=== PATIENT | female | born 1960 | race Caucasian/White ===

== ENCOUNTER 2020-06-05 08:40 | Emergency (ER) | payer BC, SELFPAY ==
[2020-06-05 08:46] VITALS: BP 128/67; PULSE 81; RESP 16; TEMP 37; O2SAT 99
[2020-06-05 09:23] VITALS: BP 124/64; PULSE 80; RESP 14; O2SAT 99
[2020-06-05 09:24] LABS: Add Urine Microscopic? YES; Appearance Urine Clear (Clear); Bacteria Urine Trace /hpf; Bilirubin Urine Negative (Negative); Blood Urine 1+ (Negative); Color Urine Straw (Yellow); Glucose Urine UA Negative (Negative); Ketones Urine Negative (Negative); Leukocyte Esterase Ur 3+ LEU/UL (Negative); Mucus Urine Rare /lpf; Nitrate Urine Negative (Negative); Protein Urine Negative (Negative); Squamous Epithelial Cell Urine Rare /hpf (Few); Urobilinogen Urine Negative mg/dL (<2.0)
[2020-06-05 09:25] LABS: Specific Grav Ur 1.003 (1.001-1.035)
--- NOTE | 2020-06-05 09:36 | ED.FEMALEGU ---
HPI - Female Genitourinary General Chief complaint: Urogenital-Female Stated complaint: urinary burning/hematuria Time Seen by Provider: 06/05/20 09:12 Source: patient Mode of arrival: ambulatory Limitations: no limitations History of Present Illness HPI Narrative: This is a 51-year-old female that presents the emergency department for dysuria x2 days. Also reports urge and frequency. Reports when symptoms started she noted some blood in the urine. Reports she has had left sided rib pain for the last couple of days as well. No known injury or trauma. Pain is worse with movement and relieved with rest and heating pad. Denies fever, nausea, vomiting, or flank pain. Related Data Home Medications Medication Instructions Recorded Confirmed calcium carbonate-vitamin D3 500 cap PO 06/14/19 mg (1,250 mg)-50 unit capsule multivitamin 1 tablet PO DAILY 06/14/19 spironolactone 5 %-niacinamide 4 % each TOPICAL 06/14/19 topical gel zolpidem 5 mg tablet 5 mg PO ONCE 06/14/19 Allergies Allergy/AdvReac Type Severity Reaction Status Date / Time No Known Allergies Allergy Verified 09/16/19 15:22 Review of Systems Review of Systems: Narrative: CONSTITUTIONAL: Denies fever CARDIOVASCULAR: Reports rib pain RESPIRATORY: Denies cough or dyspnea. GASTROINTESTINAL: Denies abdominal pain, nausea, vomiting GENITOURINARY: Reports dysuria and hematuria. MUSCULOSKELETAL: Reports myalgia. All systems reviewed & are unremarkable except as noted in HPI and below PMFSH Past Medical History Medical History (Updated 06/05/20 @ 11:24 by Rosa Maria Moreira PA-C) Chondromalacia, right knee Chronic headaches Lateral meniscus tear Patella lion Right knee pain Seasonal allergic rhinitis Vision abnormalities Surgical History Surgical History H/O knee surgery Family History Family History Father Hypertension Family history of kidney disease Family history of chronic obstructive pulmonary disease Family history of diabetes mellitus in first degree relative Family history of coronary artery disease Mother Family history of lymphoma Family history of malignant neoplasm of kidney Sibling Family history of lymphoma Social History Social History Smoking status: Never smoker Alcohol intake: current Substance use: unknown 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 Gender identity (if verbalized by the patient): Female Spiritual care concerns: No Exam Narrative: Exam Narrative: GENERAL: Well-appearing, well-nourished, and in no acute distress. HEAD: Normocephalic, atraumatic. EYES: EOMI. CHEST: Clear to auscultation. No respiratory distress. No wheezes rales or rhonchi. Tender to palpation in the left, lower lateral chest wall HEART: Regular rate and rhythm. No murmur heard. Normal peripheral pulses. ABDOMEN: Soft, nontender, nondistended, normal active bowel sounds. No CVA tenderness EXTREMITIES: Normal range of motion. No edema. SKIN: Warm, dry, no rash. NEURO: No focal deficits. Alert and oriented x3. PSYCH: Normal mood and affect Course Consultations Consultation #1: Spoke with patient's primary about work-up who will follow-up in clinic. Date: 06/05/20 Time: 11:24 Vital Signs Vital signs: Vital Signs Temperature 98.6 F 06/05/20 08:46 Pulse Rate 81 06/05/20 08:46 Respiratory Rate 16 06/05/20 08:46 Blood Pressure 128/67 06/05/20 08:46 Pulse Oximetry 99 06/05/20 08:46 Temperature 98.6 F 06/05/20 08:46 Pulse Rate 80 06/05/20 09:23 Respiratory Rate 14 06/05/20 09:23 Blood Pressure 124/64 06/05/20 09:23 Pulse Oximetry 99 06/05/20 09:23 MDM - Female Genitourinary MDM Narrative Medical decision making narrative: Patient presents the emergency department for dysuria x2 days. Also repor
[2020-06-05 10:43] LABS: Basophils Percent Auto 0.5 % (0.2-1.2); Eosinophils Percent Auto 0.3 % (0-4.4); Hematocrit 44.8 % (37.0-47.0); Hemoglobin 15.4 g/dL (12.0-15.0); Immature Granulocyte Absolute 0.02 K/mm3 (0.00-0.031); Immature Granulocyte Percent A 0.3 % (0-0.5); Lymphocytes Absolute Auto 0.92 K/mm3 (0.9-3.2); Lymphocytes Percent Auto 12.3 % (18.3-44.2); Mean Corpuscular HGB Conc 34.4 g/dl (32-36); Mean Corpuscular Hemoglobin 31.8 pg (26-34); Mean Corpuscular Volume 92.4 fl (80-100); Mean Platelet Volume 10.6 fl (7.4-10.4); Monocytes Absolute Auto 0.3 K/mm3 (0.1-0.6); Monocytes Percent Auto 4.6 % (2.6-8.5); Neutrophils Absolute Auto 6.1 K/mm3 (1.3-6.7); Platelet Count Result 209 k/mm3 (150-375); Red Blood Count 4.85 M/mm3 (4.2-5.4); Red Cell Distribution Width 11.2 % (11.5-14.5); White Blood Count 7.5 K/mm3 (4.5-10.0)
[2020-06-05 10:52] LABS: Anion Gap 8 mmol/L (8-16); Blood Urea Nitrogen 12 mg/dL (7-17); Calcium 10.4 mg/dL (8.4-10.2); Carbon Dioxide 33 mmol/L (22-30); Chloride 101 mmol/L (98-107); Estimated CRCL calculation 61 ml/min; Estimated Glomerular Filt Rate > 60; Glucose 103 mg/dL (65-105); Potassium 3.9 mmol/L (3.4-5.0); Sodium 142 mmol/L (137-145)
[2020-06-05 11:50] VITALS: BP 120/68; PULSE 65; RESP 12; O2SAT 99
== END 2020-06-05 11:50 | disposition home or self-care (01) ==
PROVIDERS: Physician Assistant; Emergency Provider Emergency Medicine; PCP Family Medicine
DX: N30.01 Acute cystitis with hematuria (principal)
CPT/HCPCS: 36415; 80048; 81001; 85025; 87077; 87086; 87088; 87186; 99283

== ENCOUNTER → 2020-06-16 11:45 | Outpatient (CLI) | payer BC, SELFPAY ==
--- NOTE | ~2020-06-16 | US_ITS ---
EXAMINATION: US renal BI DATE: 06/16/2020 12:08 INDICATION: Hematuria. TECHNIQUE: Multiple ultrasound grayscale images of the kidneys were obtained. COMPARISON: CT abdomen and pelvis 07/29/2016 FINDINGS: The right kidney measures 10.2 x 3.6 x 4.7 cm. The left kidney measures 9.1 x 3.1 x 4.7 cm. The kidne ys demonstrate normal parenchymal echogenicity. There is no hydronephrosis. The bladder is normal. IMPRESSION: 1. Normal kidneys. No hydronephrosis. Reviewed, dictated and finalized at location A. 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
== END ==
PROVIDERS: PCP Family Medicine; Visit Provider Physician Assistant Medical
DX: R31.9 Hematuria, unspecified (principal)
CPT/HCPCS: 76775

== ENCOUNTER → 2020-10-03 14:30 | Outpatient (CLI) | payer BC, SELFPAY ==
--- NOTE | ~2020-10-03 | XR_ITS ---
XR foot LT min 3V DATE: 10/03/2020 14:46 INDICATION: Left foot pain TECHNIQUE: 4 views COMPARISON: None FINDINGS: No fracture or dislocation, periosteal reaction or bone destruction. There is mild osteoarthritis at the first metatarsophalangeal and some interphalangeal joints. IMPRESSION: Osteoarthritis Reviewed, dictated and finalized at location A. IMPRESSION: Osteoarthritis
== END ==
PROVIDERS: PCP Family Medicine; Visit Provider Nurse Practitioner Family
DX: M19.072 Primary osteoarthritis, left ankle and foot (principal)
CPT/HCPCS: 73630

== ENCOUNTER → 2021-03-14 11:43 | Outpatient (CLI) | payer BC, SELFPAY ==
--- NOTE | ~2021-03-14 | US_ITS ---
EXAMINATION: US retroperitoneal comp EXAM DATE: 03/14/2021 12:08 INDICATION: Left flank pain. TECHNIQUE: Multiple grayscale and Doppler images of the kidneys were obtained (by a technologist who performed the scan) and subsequently reviewed. Comparison is made to prior examination from . FINDINGS: Right kidney: There is normal contour and echogenicity. Extrarenal pelvis. It measures 10.4 x 3.9 x 4 .1 centimeters. There are no focal renal lesions identified. There is no hydronephrosis. Left kidney: There is normal contour and echogenicity. It measures 9.3 x 3.7 x 4.7 centimeters. The re are no focal renal lesions identified. There is no hydronephrosis. Bladder unremarkable. IMPRESSION: 1. Sonographically unremarkable kidneys. Reviewed, dictated and finalized at location A.
== END ==
PROVIDERS: PCP Family Medicine; Visit Provider Urology
DX: R10.9 Unspecified abdominal pain (principal)
CPT/HCPCS: 76770

== ENCOUNTER 2025-07-18 08:48 | Outpatient (CLI) | payer BC, SELFPAY ==
--- NOTE | ~2025-07-18 | CT_ITS ---
EXAMINATION: CT sinus wo con DATE: 07/18/2025 09:03 INDICATION: Chronic sinusitis TECHNIQUE: Computed tomography (CT) of the paranasal sinuses was performed without intravenous contrast. The dose-length product was 276.47 mGy-cm. Automated exposure control and iterative reconstruction technique were employed. COMPARISON: None FINDINGS: No significant mucosal thickening. No air-fluid levels. No mucoperiosteal reaction. Ostiomeatal units are patent. Rightward nasal septal deviation. Mastoids are pneumatized. IMPRESSION: 1. No significant sinus disease. Reviewed, dictated and finalized at location O. 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
== END 2025-07-18 08:49 | disposition home or self-care (01) ==
PROVIDERS: Referring Provider Family Medicine; Visit Provider Otolaryngology
DX: J32.9 Chronic sinusitis, unspecified (principal); E04.2 Nontoxic multinodular goiter
CPT/HCPCS: 70486; 76536